=== PATIENT | female | born 2000 | race Two or more races ===

== ENCOUNTER 2021-09-12 14:15 | Emergency (ER) | payer MEDICAID ==
[~2021-09-12] VITALS: Ht 160 cm; Wt 68.0 kg
[2021-09-12] MEDS ORDERED: ACET-1158 PO (17:08)
[2021-09-12] MEDS ORDERED: ACETAMINOPHEN 325 MG TAB PO ONE (17:15)
[2021-09-12 17:20] VITALS: BP 120/86
== END 2021-09-12 17:25 | disposition home or self-care (01) ==
LOC: ER 14:15
DX: S00.83XA Contusion of other part of head, initial encounter (principal); Z79.899 Other long term (current) drug therapy; Y04.2XXA Assault by strike against or bumped into by another person, initial encounter; Y93.89 Activity, other specified; Y92.89 Other specified places as the place of occurrence of the external cause; Y99.8 Other external cause status
CPT/HCPCS: 70450